=== PATIENT | male | born 1940 | race Asian ===

== ENCOUNTER 2018-04-11 12:15 | Day surgery (SDC) | payer BC ==
[2018-04-11] MEDS ORDERED: PROPOFOL 40 ML (14:11)
[2018-04-11] MEDS ORDERED: BACITRACIN 0.9 GM OINT (14:41)
[2018-04-11] MEDS ORDERED: BACITRACIN/POLYMYXIN 28.35 GM OINT TOP (14:41)
== END 2018-04-11 16:02 | disposition home or self-care (01) ==
LOC: GIL 12:15
DX: K92.1 Melena (principal); K57.90 Diverticulosis of intestine, part unspecified, without perforation or abscess without bleeding; K64.8 Other hemorrhoids; D12.5 Benign neoplasm of sigmoid colon
CPT/HCPCS: 45380; 88305; 88341; 88342